=== PATIENT | female | born 1995 | race Caucasian/White ===

== ENCOUNTER 2018-10-09 14:49 | Emergency (ER) | payer OTHER ==
--- NOTE | 2018-10-09 16:05 | EDPHY ---
H & P Time Seen by Provider: 10/09/18 16:04 HPI/ROS: CHIEF COMPLAINT: Abdominal pain HISTORY OF PRESENT ILLNESS: This is about the 4th episode for this 23-year-old woman, her 1st episode was when she was 20 years old it lasted about a week and she was treated successfully with H2 blockers. This is her 4th episode in total. She was sent here by Urgent Care. Symptoms started yesterday with abdominal pain which is primarily epigastric and radiates a little bit to the left, associated with some diarrhea and nausea. She vomited last night. She has no urinary or vaginal symptoms, no bleeding. Worse with oral intake. She has associated mild headache today which she thinks is due to dehydration. She says it is very similar to the previous episodes. REVIEW OF SYSTEMS: Eye: no change in vision ENT: no sore throat Cardiac: no chest pain or syncope Pulmonary: no cough or SOB Abdomen: HPI Musculoskeletal: no back pain Skin: no rash Neuro: HPI Constitutional: no fever : no urinary symptoms A comprehensive 10 point review of systems is otherwise negative aside from elements mentioned in the history of present illness. PAST MEDICAL HISTORY: Negative, no previous surgeries Social history: No recent travel General Appearance: Alert and conversant, cooperative. Eyes: No scleral icterus. ENT, Mouth: Dry mucous membranes. Respiratory: Normal respiratory effort, breath sounds equal, lungs are clear to auscultation. Cardiovascular: Regular rate and rhythm. Gastrointestinal: Epigastric tenderness but no Pickard sign or right upper quadrant tenderness or McBurney's point tenderness. No rebound or guarding. No lower abdominal point tenderness. Neurological: Alert, face symmetric, normal motor and sensory in extremities. Skin: Warm and dry, no rashes. Musculoskeletal: No peripheral edema. Psychiatric: Not agitated. Emergency Department course/MDM: More likely to be GERD or gallbladder or pancreatic disease. I think that ectopic or PID or UTI or renal colic or splenic rupture or appendicitis or cholecystitis or pancreatitis or perforation are all less likely. Symptoms are all upper abdominal. Plan for Zofran 4, Protonix, IV fluids, labs to include lipase and LFTs. 1739: Patient re-evaluated, feels better, no McBurney's point tenderness, no rebound or guarding. Plan to treat with PPI and primary care referral. Labs, differential diagnosis, assessment and plan are reviewed with the patient and her partner. They state they are comfortable with being discharged with the outpatient plan. Smoking Status: Never smoked Constitutional: Initial Vital Signs Temperature (C) 36.9 C 10/09/18 14:53 Heart Rate 78 10/09/18 14:53 Respiratory Rate 16 10/09/18 14:53 Blood Pressure 130/96 H 10/09/18 14:53 O2 Sat (%) 98 10/09/18 14:53 O2 Delivery Mode Room Air Allergies/Adverse Reactions: No Known Allergies Allergy (Unverified 10/09/18 14:53) Home Medications: Medication Instructions Recorded Pantoprazole Sodium [Protonix] 40 mg PO DAILY #15 tab 10/09/18 Medical Decision Making - Data Points Laboratory Results: Laboratory Results 10/09/18 16:08 10/09/18 16:08 10/09/18 10/09/18 10/09/18 16:08 16:08 16:08 WBC 10.64 10^3/uL H 10^3/uL (3.80-9.50) RBC 5.06 10^6/uL 10^6/uL (4.18-5.33) Hgb 15.6 g/dL g/dL (12.6-16.3) Hct 45.0 % % (38.0-47.0) MCV 88.9 fL fL (81.5-99.8) MCH 30.8 pg pg (27.9-34.1) MCHC 34.7 g/dL g/dL (32.4-36.7) RDW 12.3 % % (11.5-15.2) Plt Count 298 10^3/uL 10^3/uL (150-400) MPV 9.8 fL fL (8.7-11.7) Neut % (Auto) 79.0 % H % (39.3-74.2) Lymph % (Auto) 14.3 % L % (15.0-45.0) [place] % (Auto) 5.6 % % (4.5-13.0) Eos % (Auto) 0.4 % L % (0.6-7.6) Baso % (Auto) 0.4 % % (0.3-1.7) Nucleat RBC Rel Count 0.0 % % (0.0-0.2) Absolute Neuts (auto) 8.41 10^3/uL H 10^3/uL (1.70-6.50) Absolute Lymphs (auto) 1.52 10^3/uL 10^3/uL (1.00-3.00) Absolute Monos (auto) 0.60 10^3/uL 10^3/uL (0.30-0.80) Absolute Eos (auto) 0.04 10^3/uL 10^3/uL (0.03-0.40) Absolute Basos (auto) 0.04 10^3/uL 10^3/uL (0.02-0.10) Absolute Nucleated RBC 0.00 10^3/uL 10^3/uL (0-0.01) Immature Gran % 0.3 % % (0.0-1.1) Immature Gran # 0.03 10^3/uL 10^3/uL (0.00-0.10) Sodium 137 mEq/L mEq/L (135-145) Potassium 3.8 mEq/L mEq/L (3.5-5.2) Chloride 104 mEq/L mEq/L (97-110) Carbon Dioxide 24 mEq/l mEq/l (22-31) Anion Gap 9 mEq/L mEq/L (6-14) BUN 6 mg/dL L mg/dL (7-23) Creatinine 0.6 mg/dL mg/dL (0.6-1.0) Estimated GFR > 60 Glucose 102 mg/dL H mg/dL (70-100) Calcium 9.8 mg/dL mg/dL (8.5-10.4) Total Bilirubin Conjugated Bilirubin Unconjugated Bilirubin AST ALT Alkaline Phosphatase Total Protein Albumin Lipase Beta HCG, Qual NEGATIVE Urine Color Urine Appearance Urine pH Ur Specific [place] Urine Protein Urine Ketones Urine Blood Urine Nitrate Urine Bilirubin Urine Urobilinogen Ur Leukocyte Esterase Urine RBC Urine WBC Ur Epithelial Cells Urine Bacteria Urine Mucus Urine Glucose 10/09/18 10/09/18 16:00 14:55 WBC RBC Hgb Hct MCV MCH MCHC RDW Plt Count MPV Neut % (Auto) Lymph % (Auto) [place] % (Auto) Eos % (Auto) Baso % (Auto) Nucleat RBC Rel Count Absolute Neuts (auto) Absolute Lymphs (auto) Absolute Monos (auto) Absolute Eos (auto) Absolute Basos (auto) Absolute Nucleated RBC Immature Gran % Immature Gran # Sodium Potassium Chloride Carbon Dioxide Anion Gap BUN Creatinine Estimated GFR Glucose Calcium Total Bilirubin 0.5 mg/dL mg/dL (0.1-1.4) Conjugated Bilirubin 0.3 mg/dL mg/dL (0.0-0.5) Unconjugated Bilirubin 0.2 mg/dL mg/dL (0.0-1.1) AST 21 IU/L IU/L (14-46) ALT 23 IU/L IU/L (9-52) Alkaline Phosphatase 100 IU/L IU/L (38-126) Total Protein 8.3 g/dL H g/dL (6.3-8.2) Albumin 4.5 g/dL g/dL (3.5-5.0) Lipase 161 IU/L IU/L (23-300) Beta HCG, Qual Urine Color YELLOW Urine Appearance HAZY Urine pH 6.0 (5.0-7.5) Ur Specific [place] 1.008 (1.002-1.030) Urine Protein NEGATIVE (NEGATIVE) Urine Ketones NEGATIVE (NEGATIVE) Urine Blood NEGATIVE (NEGATIVE) Urine Nitrate NEGATIVE (NEGATIVE) Urine Bilirubin NEGATIVE (NEGATIVE) Urine Urobilinogen NEGATIVE EU EU (0.2-1.0) Ur Leukocyte Esterase 1+ H (NEGATIVE) Urine RBC 3-5 /hpf H /hpf (0-3) Urine WBC 3-5 /hpf H /hpf (0-3) Ur Epithelial Cells TRACE /lpf /lpf (NONE-1+) Urine Bacteria 2+ /hpf H /hpf (NONE SEEN) Urine Mucus TRACE /lpf /lpf (NONE-1+) Urine Glucose NEGATIVE (NEGATIVE) Medications Given: Discontinued Medications Sodium Chloride (Ns) 1,000 mls @ 0 mls/hr IV EDNOW ONE; Wide Open PRN Reason: Protocol Stop: 10/09/18 16:18 Last Admin: 10/09/18 16:32 Dose: 1,000 mls Ondansetron HCl (Zofran) 4 mg IVP EDNOW ONE Stop: 10/09/18 16:19 Last Admin: 10/09/18 16:32 Dose: 4 mg Pantoprazole Sodium (Protonix) 40 mg IVP EDNOW ONE Stop: 10/09/18 16:18 Last Admin: 10/09/18 16:30 Dose: 40 mg Departure - Departure Disposition: Home, Routine, Self-Care Clinical Impression: Abdominal pain Qualifiers: Abdominal location: upper abdomen, unspecified Qualified Code(s): R10.10 - Upper abdominal pain, unspecified Condition: Good Instructions: Gastroesophageal Reflux Disease (ED), Acute Abdominal Pain (ED) Additional Instructions: Primary care follow-up in the next 2 weeks. You need to return to the emergency department immediately if you develop worsening or severe pain, fever, vomiting or you are not better in 8-12 hours. Referrals: Ruby Dangelo MD [Medical Doctor] - As per Instructions China Elena MD [Non Staff Provider (MD)] - As per Instructions Prescriptions: Pantoprazole Sodium [Protonix] 40 mg PO DAILY #15 tab
[2018-10-09 16:16] LABS: PLATELET COUNT 298 10^3/uL (150-400)
[2018-10-09] MEDS ORDERED: PANTOPRAZOLE SODIUM 40 MG VIAL IVP ONE (16:17)
[2018-10-09] MEDS ORDERED: NS 1,000 ML IV ONE (16:17)
[2018-10-09] MEDS ORDERED: ONDANSETRON 4 MG/2 ML VIAL IVP ONE (16:18)
[2018-10-09 17:49] VITALS: BP 115/80
== END 2018-10-09 17:55 | disposition home or self-care (01) ==
DX: R10.10 Upper abdominal pain, unspecified (principal)
CPT/HCPCS: 96374; J2405